=== PATIENT | female | born 1935 | race Caucasian/White ===

== ENCOUNTER 2017-07-31 11:09 | Emergency (ER) | payer MEDICARE, BC ==
--- NOTE | 2017-07-31 11:25 | ER Document Report ---
ED Fall - General Stated Complaint: LEFT ARM INJURY Time Seen by Provider: 07/31/17 11:25 Notes: 82-year-old female. Went to the bathroom this morning. Does have history of balance issues. Followed by neurologist. Lost her balance and fell backwards. Her arm hit the bathtub. Did not lose consciousness. Denies any other major pain. Had a hard time getting out of the bathtub in the position that she was in. had to call EMS. Patient denies any complaints other than pain in the left humerus area as well as being thirsty. TRAVEL OUTSIDE OF THE [place] IN LAST 30 DAYS: No - HPI Occurred: This morning Where: Home Context: Lost balance Associated symptoms: None Location of injury/pain: Upper extremity Severity: Mild Pain Level: 1 Prehospital interventions: No: C-collar, Backboard - Related data Allergies/Adverse Reactions: azithromycin [Azithromycin] Allergy (Unknown, Verified 02/20/13 14:43) tetanus immune globulin [Tetanus Immune Globulin] Allergy (Unknown, Verified 14:43) MSG Allergy (Unknown, Uncoded 02/20/13 14:43) flu vaccine Allergy (Uncoded 02/20/13 14:43) Past Medical History - General Information source: Patient - Social History Smoking Status: Never Smoker Frequency of alcohol use: None Drug Abuse: None Lives with: Spouse/Significant other Family History: Reviewed & Not Pertinent - Past Medical History Cardiac Medical History: Reports: Hx Hypercholesterolemia Pulmonary Medical History: Reports: Hx Asthma Malignancy Medical History: Reports: Hx Skin Cancer GI Medical History: Reports: Hx Gastroesophageal Reflux Disease Musculoskeltal Medical History: Reports Hx Arthritis, Reports Hx Fibromyalgia, Reports Hx Musculoskeletal Deformity, Reports Hx Musculoskeletal Trauma Traumatic Medical History: Reports: Hx Fractures Past Surgical History: Reports: Hx Hysterectomy - Immunizations Immunizations up to date: Yes Hx Diphtheria, Pertussis, Tetanus Vaccination: No Hx Pneumococcal Vaccination: 05/03/10 Review of Systems - Review of Systems Constitutional: No symptoms reported EENT: No symptoms reported Cardiovascular: No symptoms reported Respiratory: No symptoms reported Gastrointestinal: No symptoms reported Genitourinary: No symptoms reported Female Genitourinary: No symptoms reported Musculoskeletal: Other - Left arm pain, left arm contusion Skin: No symptoms reported, Other - Bruising to the left humerus area Hematologic/Lymphatic: No symptoms reported Neurological/Psychological: No symptoms reported. denies: Confusion, Dementia, Sensory change, Weakness, Seizure, Lost consciousness, Headaches, Numbness Physical Exam - Vital signs Vitals: Resp 18 07/31/17 11:33 Interpretation: Normal - General General appearance: Appears well, Alert - HEENT Head: Normocephalic, Atraumatic Eyes: Normal Pupils: PERRL - Respiratory Respiratory status: No respiratory distress Chest status: Nontender Breath sounds: Normal Chest palpation: Normal - Cardiovascular Rhythm: Regular Heart sounds: Normal auscultation Murmur: No - Abdominal Inspection: Normal Distension: No distension Bowel sounds: Normal Tenderness: Nontender Organomegaly: No organomegaly - Back Back: Normal, Nontender - Extremities General upper extremity: Normal color, Normal ROM, Normal temperature, Other - There is a bruise noted on the left mid humerus area. No obvious deformity. Mildly tender to palpation. General lower extremity: Normal inspection, Nontender, Normal color, Normal ROM , Normal temperature, Normal weight bearing. No: Rhoda's sign - Neurological Neuro grossly intact: Yes Cognition: Normal Orientation: AAOx4 Nandini Coma Scale Eye Opening: Spontaneous Nandini Coma Scale Verbal: Oriented Nandini Coma Scale Motor: Obeys Commands Quinn Coma Scale Total: 15 Speech: Normal Motor strength normal: LUE, RUE, LLE, RLE Sensory: Normal - Psychological Associated symptoms: Normal affect, Normal mood - Skin Skin Temperature: Warm Skin Moisture: Dry Skin Color: Normal Course - Re-evaluation Re-evalutation: 07/31/17 13:54 Labs are normal. X-ray unremarkable. Nothing further at this time. Will DC Laboratory 07/31/17 07/31/17 07/31/17 11:55 11:55 11:55 WBC 6.9 RBC 4.22 Hgb 12.3 Hct 37.7 MCV 89 MCH 29.2 MCHC 32.7 RDW 14.6 H Plt Count 239 Seg Neutrophils % 52.5 Lymphocytes % 33.2 Monocytes % 9.1 Eosinophils % 4.5 Basophils % 0.7 Absolute Neutrophils 3.6 Absolute Lymphocytes 2.3 Absolute Monocytes 0.6 Absolute Eosinophils 0.3 Absolute Basophils 0.0 Sodium 140.9 Potassium 4.4 Chloride 103 Carbon Dioxide 32 H Anion Gap 6 BUN 12 Creatinine 0.79 Est GFR ( Amer) > 60 Est GFR (Non-Af Amer) > 60 Glucose 90 Calcium 10.0 Total Bilirubin 0.2 Direct Bilirubin 0.0 Neonat Total Bilirubin Not Reportable Neonat Direct Bilirubin Not Reportable Neonat Indirect Bili Not Reportable AST 24 ALT 30 Alkaline Phosphatase 78 Total Protein 6.1 L Albumin 3.9 TSH 2.62 Free T4 0.85 Urine Color Urine Appearance Urine pH Ur Specific [place] Urine Protein Urine Glucose (UA) Urine Ketones Urine Blood Urine Nitrite Urine Bilirubin Urine Urobilinogen Ur Leukocyte Esterase Urine WBC (Auto) Urine RBC (Auto) Urine Bacteria (Auto) Squamous Epi Cells Auto Urine Mucus (Auto) Urine Ascorbic Acid 07/31/17 12:35 WBC RBC Hgb Hct MCV MCH MCHC RDW Plt Count Seg Neutrophils % Lymphocytes % Monocytes % Eosinophils % Basophils % Absolute Neutrophils Absolute Lymphocytes Absolute Monocytes Absolute Eosinophils Absolute Basophils Sodium Potassium Chloride Carbon Dioxide Anion Gap BUN Creatinine Est GFR ( Amer) Est GFR (Non-Af Amer) Glucose Calcium Total Bilirubin Direct Bilirubin Neonat Total Bilirubin Neonat Direct Bilirubin Neonat Indirect Bili AST ALT Alkaline Phosphatase Total Protein Albumin TSH Free T4 Urine Color YELLOW Urine Appearance CLEAR Urine pH 6.0 Ur Specific [place] 1.017 Urine Protein NEGATIVE Urine Glucose (UA) NEGATIVE Urine Ketones NEGATIVE Urine Blood NEGATIVE Urine Nitrite NEGATIVE Urine Bilirubin NEGATIVE Urine Urobilinogen NEGATIVE Ur Leukocyte Esterase NEGATIVE Urine WBC (Auto) 1 Urine RBC (Auto) 0 Urine Bacteria (Auto) TRACE Squamous Epi Cells Auto 3 Urine Mucus (Auto) OCC Urine Ascorbic Acid NEGATIVE Humerus X-Ray 07/31/17 11:40 IMPRESSION: NEGATIVE STUDY OF THE LEFT HUMERUS. NO RADIOGRAPHIC EVIDENCE OF ACUTE INJURY. - Vital Signs Vital signs: Temp Pulse Resp BP Pulse Ox 18 07/31/17 11:33 - Laboratory Result Diagrams: 07/31/17 11:55 07/31/17 11:55 Laboratory results interpreted by me: 07/31/17 07/31/17 11:55 11:55 RDW 14.6 H Carbon Dioxide 32 H Total Protein 6.1 L Discharge - Discharge Clinical Impression: Contusion of left arm Qualifiers: Encounter type: initial encounter Qualified Code(s): S40.022A - Contusion of left upper arm, initial encounter Condition: Good Disposition: HOME, SELF-CARE Instructions: Contusion ([facility]) Referrals: ANGY VALENTIN PA-C [Primary Care Provider] - Follow up as needed
--- NOTE | 2017-07-31 12:27 | RADIOLOGY REPORT (SQ) ---
EXAM DESCRIPTION: HUMERUS LEFT COMPLETED DATE/TIME: 07/31/2017 11:59 am REASON FOR STUDY: fall, pain COMPARISON: None. NUMBER OF VIEWS: Two views. TECHNIQUE: Two radiographic images were acquired of the left humerus to include elbow and shoulder i n at least one projection. LIMITATIONS: None. FINDINGS: MINERALIZATION: Normal. BONES: No acute fracture or dislocation. No worrisome bone lesions. SOFT TISSUES: No obvious swelling or foreign body. OTHER: No other significant finding. IMPRESSION: NEGATIVE STUDY OF THE LEFT HUMERUS. NO RADIOGRAPHIC EVIDENCE OF ACUTE INJURY. TECHNICAL DOCUMENTATION: JOB ID: [id number] [employer]- All Rights Reserved Reading location - IP/workstation name: [email or web address]
[2017-07-31 12:28] LABS: ABSOLUTE EOSINOPHILS # (AUTO) 0.3 10^3/uL (0.0-0.6); ABSOLUTE LYMPHOCYTES (AUTO) 2.3 10^3/uL (0.5-4.7); ABSOLUTE MONOCYTES (AUTO) 0.6 10^3/uL (0.1-1.4); ABSOLUTE NEUT (AUTO) 3.6 10^3/uL (1.7-8.2); BASOPHILS % (AUTO) 0.7 % (0-2); EOSINOPHILS % (AUTO) 4.5 % (0-6); HEMATOCRIT 37.7 % (36.0-47.0); HEMOGLOBIN 12.3 g/dL (12.0-15.5); LYMPHOCYTES % (AUTO) 33.2 % (13-45); MEAN CORPUSCULAR HEMOGLOBIN 29.2 pg (27.0-33.4); MEAN CORPUSCULAR HGB CONC 32.7 g/dL (32.0-36.0); MEAN CORPUSCULAR VOLUME 89 fl (80-97); MONOCYTES % (AUTO) 9.1 % (3-13); PLATELET COUNT 239 10^3/uL (150-450); RED BLOOD COUNT 4.22 10^6/uL (3.72-5.28); RED CELL DISTRIBUTION WIDTH 14.6 % (11.5-14.0); SEGMENTED NEUTROPHILS % (AUTO) 52.5 % (42-78); TOTAL CELLS COUNTED % (AUTO) 100 %; WHITE BLOOD COUNT 6.9 10^3/uL (4.0-10.5)
[2017-07-31 12:47] LABS: ALANINE AMINOTRANSFERASE 30 U/L (9-52); ALBUMIN 3.9 g/dL (3.5-5.0); ALKALINE PHOSPHATASE 78 U/L (38-126); ANION GAP 6 (5-19); ASPARTATE AMINO TRANSFERASE 24 U/L (14-36); BILIRUBIN,TOTAL 0.2 mg/dL (0.2-1.3); BLOOD UREA NITROGEN 12 mg/dL (7-20); CARBON DIOXIDE 32 mmol/L (22-30); CHLORIDE 103 mmol/L (98-107); GLUCOSE 90 mg/dL (75-110); POTASSIUM 4.4 mmol/L (3.6-5.0); SODIUM 140.9 mmol/L (137-145); TOTAL PROTEIN 6.1 g/dL (6.3-8.2)
[2017-07-31 13:01] LABS: FREE T4 (FREE THYROXINE) 0.85 ng/dL (0.78-2.19)
[2017-07-31 13:15] LABS: THYROID STIMULATING HORMONE 2.62 uIU/mL (0.47-4.68)
[2017-07-31 13:31] LABS: APPEARANCE,URINE CLEAR; BILIRUBIN,URINE NEGATIVE (NEGATIVE); COLOR,URINE YELLOW; GLUCOSE, URINE NEGATIVE (NEGATIVE); KETONES,URINE NEGATIVE (NEGATIVE); LEUKOCYTE ESTERASE,URINE NEGATIVE (NEGATIVE); NITRITE,URINE NEGATIVE (NEGATIVE); PROTEIN,URINE NEGATIVE (NEGATIVE); URINE SPECIFIC GRAVITY 1.017; UROBILINOGEN,URINE NEGATIVE mg/dL (<2.0)
[2017-07-31 14:39] VITALS: BP 119/56
== END 2017-07-31 14:46 | disposition home or self-care (01) ==
LOC: ER 11:09
DX: S40.022A Contusion of left upper arm, initial encounter (principal); W18.2XXA Fall in (into) shower or empty bathtub, initial encounter; Y92.002 Bathroom of unspecified non-institutional (private) residence as the place of occurrence of the external cause; J45.909 Unspecified asthma, uncomplicated; Z88.1 Allergy status to other antibiotic agents; Z88.7 Allergy status to serum and vaccine; Z85.828 Personal history of other malignant neoplasm of skin
CPT/HCPCS: 36415; 80053; 81001; 84439; 84443; 85025; 87086; 99284

== ENCOUNTER → 2017-08-31 | Outpatient (CLI) | payer MEDICARE, BC ==
--- NOTE | 2017-08-31 16:36 | RADIOLOGY REPORT (SQ) ---
EXAM DESCRIPTION: MRI RT UPPER EXTREMITY COMBO; MRI RT UPPER JOINT WITHOUT COMPLETED DATE/TIME: 08/31/2017 4:04 pm REASON FOR STUDY: LOCALIZED SWELLING, MASS AND LUMP (R22.9), PAIN IN RIGHT SHOULDER (M25.511) R22.9 LOCALIZED SWELLING, MASS AND LUMP, UNSPECIFIED COMPARISON: No previous TECHNIQUE: Right upper lateral chest wall and dedicated right shoulder images acquired and stored on PACS. Multiplanar imaging to include fat sensitive sequences such as T1, water sensitive sequences s uch as FST2/STIR, cartilage sensitive sequences such as FSPD/gradient-echo sequences. Patient was also injected 15 mL of IV ProHance gadolinium with postcontrast axial coronal and sagitta l fat-sat T1 images of the upper extremity and shoulder obtained. LIMITATIONS: None. FINDINGS: Right upper lateral chest wall/axilla: Patient indicates a palpable abnormality along the right upper lateral chest wall/axilla. A vitamin E capsule was placed on the patient's skin and savita ging demonstrates minimal focal skin thickening deep to the vitamin-E capsule measuring about 5 mm in thickness. No contrast enhancement. No well-circumscribed mass. Perhaps this represents a small s ebaceous cyst or primary skin lesion. No deep tissue extension. Adjacent subcutaneous fat and right lateral chest wall to include ribs and musculature is unremarkabl e. Right brachials plexus is unremarkable. Normal marrow signal in the scapula, humerus, clavicle, right upper lateral ribs. Right shoulder: BONE MARROW AND CORTEX: No worrisome bone lesions or marrow replacement. No occult fractures. JOINT OR BURSAL EFFUSION: Trace fluid in the subacromial/subdeltoid bursa. GLENO-HUMERAL ARTICULATION: No malalignment. Mild chondromalacia ACROMION AND AC JOINT: Type 2 acromion with moderate acromioclavicular joint bony spurring. Mild na rrowing of the subacromial space ROTATOR CUFF AND INTERVAL: There is high signal in the anterior half of the supraspinatus tendon from tendinopathy and partial thickness tear. No rotator interval tear. No rotator interval thickening to suggest adhesive capsulitis. LABRUM AND BICEPS LABRAL COMPLEX: Intra-articular long head biceps tendinopathy present. There is a diffuse labral tear throughout the anterior and posterior labrum on axial images 7-12. Subcortical cysts are present in the anterior half of the bony glenoid.No thickening of IGHL to suggest adhesive capsulitis. PERIARTICULAR AND ADJACENT SOFT TISSUES: No masses or abnormal nodes. OTHER: No other significant finding. IMPRESSION: Palpable abnormality indicated by the patient correlates with a subtle area of focal ski n thickening. This could indicate a sebaceous cyst or other primary skin lesion. No deep tissue ext ension. Anterior supraspinatus tendinopathy. Diffuse degenerated torn glenoid labrum with subcortical cyst f ormation in the anterior half of the bony glenoid. Intra-articular long head biceps tendinopathy Acromioclavicular joint hypertrophy TECHNICAL DOCUMENTATION: JOB ID: [id number] [employer]- All Rights Reserved Reading location - IP/workstation name: [email or web address]
== END ==
LOC: RAD 13:55
PROVIDERS: ATTEND Orthopaedic Surgery
DX: M25.511 Pain in right shoulder (principal); R22.9 Localized swelling, mass and lump, unspecified
CPT/HCPCS: 73220; 73221; A9576

== ENCOUNTER 2019-06-12 17:01 | Emergency (ER) | payer MEDICARE, BC ==
--- NOTE | 2019-06-12 18:38 | ER Document Report ---
ED Medical Screen (RME) - General Chief Complaint: General Weakness Stated Complaint: GENERAL WEAKNESS Time Seen by Provider: 06/12/19 18:26 Primary Care Provider: JOAN DAWN MD [Primary Care Provider] - Follow up as needed Mode of Arrival: Wheelchair Information source: Patient Notes: Patient presents with spouse with concerns about double vision and the fact that patient has been seeing things that are not there. Patient states that she was at the lacing operator office today and whenever they discovered that patient was having complaint of double vision they recommended her come here for further evaluation. Patient does complain of having a headache that she describes as a pressure in her head. Patient still states that she is also been having hallu cinations in which she sees things that are not there. He states that this is been going on for about 2 to 3 weeks. Patient cannot say what facility she is at and cannot list the day of the week or who the president is at this time. Patient spouse denies any known history of dementia. I have greeted and performed a rapid initial assessment of this patient. A comprehensive ED assessment and evaluation of the patient, analysis of test results and completion of the medical decision making process will be conducted by additional ED providers. TRAVEL OUTSIDE OF THE [place] IN LAST 30 DAYS: No - Related Data Allergies/Adverse Reactions: azithromycin [Azithromycin] Allergy (Unknown, Verified 06/12/19 18:21) tetanus immune globulin [Tetanus Immune Globulin] Allergy (Unknown, Verified 06/12/19 18:21) MSG Allergy (Unknown, Uncoded 06/12/19 18:21) flu vaccine Allergy (Uncoded 06/12/19 18:21) Home Medications: rosuvastatin. cymbalta. premarin. fluticasone. gabapentin. polyethylene glycol. vitamin d. lutein-zeaxanthin. restasis. ketoloric tromethamine. similasan. omeprazole. oxycodone-acetaminophen. estrace. symbicort. fish oil. co q. myrbetriq. proair. albuterol. pnuemovax. doxycycloine Past Medical History - Social History Frequency of alcohol use: None Drug Abuse: None - Past Medical History Cardiac Medical History: Reports: Hx Hypercholesterolemia Pulmonary Medical History: Reports: Hx Asthma Renal/ Medical History: Denies: Hx Peritoneal Dialysis Malignancy Medical History: Reports: Hx Skin Cancer GI Medical History: Reports: Hx Gastroesophageal Reflux Disease Musculoskeltal Medical History: Reports Hx Arthritis, Reports Hx Fibromyalgia, Reports Hx Musculoskeletal Deformity, Reports Hx Musculoskeletal Trauma Traumatic Medical History: Reports: Hx Fractures Past Surgical History: Reports: Hx Hysterectomy, Hx Tonsillectomy - Immunizations Immunizations up to date: Yes Hx Diphtheria, Pertussis, Tetanus Vaccination: No Physical Exam - Vital signs Vitals: Temp Pulse Resp BP Pulse Ox 97.7 F 82 20 128/96 H 99 06/12/19 17:06/12/19 17:06/12/19 17:06/12/19 17:27 06/12/19 17:27 - Neurological Orientation: Disoriented to place, Disoriented to time. No: Disoriented to person Speech: Normal Course - Vital Signs Vital signs: Temp Pulse Resp BP Pulse Ox 97.7 F 82 20 128/96 H 99 06/12/19 17:27 06/12/19 17:27 06/12/19 17:27 06/12/19 17:27 06/12/19 17:27 Doctor's Discharge - Discharge Referrals: JOAN DAWN MD [Primary Care Provider] - Follow up as needed
--- NOTE | 2019-06-12 19:21 | RADIOLOGY REPORT (SQ) ---
EXAM DESCRIPTION: CHEST SINGLE VIEW COMPLETED DATE/TIME: 06/12/2019 7:01 pm REASON FOR STUDY: JIMENEZ, vision changes COMPARISON: 03/18/2016 EXAM PARAMETERS: NUMBER OF VIEWS: One view. TECHNIQUE: Single frontal radiographic view of the chest acquired. RADIATION DOSE: NA LIMITATIONS: None. FINDINGS: LUNGS AND PLEURA: No opacities, masses or pneumothorax. No pleural effusion. MEDIASTINUM AND HILAR STRUCTURES: No masses. Contour normal. HEART AND VASCULAR STRUCTURES: Heart normal in size. Normal vasculature. BONES: No acute findings. HARDWARE: None in the chest. OTHER: No other significant finding. IMPRESSION: NO ACUTE RADIOGRAPHIC FINDING IN THE CHEST. TECHNICAL DOCUMENTATION: JOB ID: [id number] 2010 [employer]- All Rights Reserved Reading location - IP/workstation name: [email or web address]
--- NOTE | 2019-06-12 19:25 | RADIOLOGY REPORT (SQ) ---
EXAM DESCRIPTION: CT HEAD WITHOUT COMPLETED DATE/TIME: 06/12/2019 7:14 pm REASON FOR STUDY: JIMENEZ, vision changes COMPARISON: 11/09/2010 TECHNIQUE: Axial images acquired through the brain without intravenous contrast. Images reviewed wi th bone, brain and subdural windows. Additional sagittal and coronal reconstructions were generated. Images stored on PACS. All CT scanners at this facility use dose modulation, iterative reconstruction, and/or weight based d osing when appropriate to reduce radiation dose to as low as reasonably achievable (ALARA). [facility]: Dose Right [facility]: CareDose [facility]: Dose Right [facility]: Teradose 4D [facility]: [facility] RADIATION DOSE: CT Rad equipment meets quality standard of care and radiation dose reduction techniq ues were employed. CTDIvol: 53.2 mGy. DLP: 991 mGy-cm.mGy. LIMITATIONS: None. FINDINGS: VENTRICLES: Prominent. CEREBRUM: No masses. No hemorrhage. No midline shift. Areas of low density in the white matter mos t likely due to chronic micro-vascular ischemic change. No evidence for acute infarction. CEREBELLUM: No masses. No hemorrhage. No alteration of density. No evidence for acute infarction. EXTRAAXIAL SPACES: Age-related involutional change. No fluid collections. No masses. ORBITS AND GLOBE: No intra- or extraconal masses. Normal contour of globe without masses. CALVARIUM: No fracture. PARANASAL SINUSES: No fluid or mucosal thickening. SOFT TISSUES: No mass or hematoma. OTHER: No other significant finding. IMPRESSION: CHRONIC CHANGES OF ATROPHY AND MICROVASCULAR ISCHEMIA. NO ACUTE PROCESS. EVIDENCE OF ACUTE STROKE: NO. TECHNICAL DOCUMENTATION: JOB ID: [id number] Quality ID # [id number]: Final reports with documentation of one or more dose reduction techniques (e.g., Au tomated exposure control, adjustment of the mA and/or kV according to patient size, use of iterative reconstruction technique) 2010 [employer]- All Rights Reserved Reading location - IP/workstation name: [email or web address]
[2019-06-12 20:13] LABS: ABSOLUTE EOSINOPHILS # (AUTO) 0.3 10^3/uL (0.0-0.6); ABSOLUTE LYMPHOCYTES (AUTO) 1.8 10^3/uL (0.5-4.7); ABSOLUTE MONOCYTES (AUTO) 0.6 10^3/uL (0.1-1.4); ABSOLUTE NEUT (AUTO) 4.1 10^3/uL (1.7-8.2); BASOPHILS % (AUTO) 0.7 % (0-2); EOSINOPHILS % (AUTO) 4.8 % (0-6); HEMATOCRIT 42.2 % (36.0-47.0); HEMOGLOBIN 14.2 g/dL (12.0-15.5); LYMPHOCYTES % (AUTO) 26.8 % (13-45); MEAN CORPUSCULAR HEMOGLOBIN 29.9 pg (27.0-33.4); MEAN CORPUSCULAR HGB CONC 33.5 g/dL (32.0-36.0); MEAN CORPUSCULAR VOLUME 89 fl (80-97); MONOCYTES % (AUTO) 8.8 % (3-13); PLATELET COUNT 258 10^3/uL (150-450); RED BLOOD COUNT 4.74 10^6/uL (3.72-5.28); RED CELL DISTRIBUTION WIDTH 15.1 % (11.5-14.0); SEGMENTED NEUTROPHILS % (AUTO) 58.9 % (42-78); TOTAL CELLS COUNTED % (AUTO) 100 %; WHITE BLOOD COUNT 6.9 10^3/uL (4.0-10.5)
[2019-06-12 20:15] LABS: INTERNATIONAL RATION (INR) 0.97; PARTIAL THROMBOPLASTIN TIME 28.6 SEC (23.5-35.8); PROTHROMBIN TIME 12.9 SEC (11.4-15.4)
[2019-06-12 20:23] LABS: ALBUMIN 4.9 g/dL (3.5-5.0); ALKALINE PHOSPHATASE 87 U/L (38-126); ANION GAP 11 (5-19); ASPARTATE AMINO TRANSFERASE 29 U/L (14-36); BILIRUBIN,DIRECT 0.3 mg/dL (0.0-0.4); BILIRUBIN,TOTAL 0.5 mg/dL (0.2-1.3); BLOOD UREA NITROGEN 16 mg/dL (7-20); CARBON DIOXIDE 30 mmol/L (22-30); CHLORIDE 101 mmol/L (98-107); CREATINE KINASE 36 U/L (30-135); GLUCOSE 103 mg/dL (75-110); POTASSIUM 4.4 mmol/L (3.6-5.0); TOTAL PROTEIN 8.6 g/dL (6.3-8.2)
[2019-06-12 20:35] LABS: CREATINE KINASE MB 0.56 ng/mL (<4.55)
[2019-06-12 20:36] LABS: TROPONIN I < 0.012 ng/mL
--- NOTE | 2019-06-12 21:27 | ER Document Report ---
ED General - General Chief Complaint: General Weakness Stated Complaint: GENERAL WEAKNESS Time Seen by Provider: 06/12/19 18:26 Primary Care Provider: JOAN DAWN MD [NO LOCAL MD] - Follow up as needed KAYLAN MCKEON MD [COMMUNITY BASED STAFF] - Follow up as needed OCTAVIO KOWALSKI MD [NO LOCAL MD] - Follow up as needed Mode of Arrival: Wheelchair Information source: Patient, Relative TRAVEL OUTSIDE OF THE [place] IN LAST 30 DAYS: No - HPI Onset: Other - over the last several weeks Onset/Duration: Gradual Quality of pain: No pain Severity: Moderate Pain Level: Denies Associated symptoms: Other - Dizziness, Confusion Exacerbated by: Walking Relieved by: Remaining still Similar symptoms previously: Yes - Patient has had dizziness and balanace issues but AMS is new Recently seen / treated by doctor: No Notes: 84 year old female with a history of HTN, HLD, Fibromyalgia, Arthritis here for altered mental status and hallucinations. The patient apparently has been seeing things that are not there. The patient has also been more confused then normal per report of her . The patient complains to me that she feels weaker then normal and slightly dazed. The patient's tells me he is concerned about dementia and Parkinsons. Of note, the patient is on pain medications and has been for some time such as Oxycodone and Gabapentin. The patient and her deny recent fevers, chills, sweats, nausea, vomiting, urinary symptoms, cough. - Related Data Allergies/Adverse Reactions: azithromycin [Azithromycin] Allergy (Unknown, Verified 06/12/19 18:21) tetanus immune globulin [Tetanus Immune Globulin] Allergy (Unknown, Verified 06/12/19 18:21) MSG Allergy (Unknown, Uncoded 06/12/19 18:21) flu vaccine Allergy (Uncoded 06/12/19 18:21) Home Medications: rosuvastatin. cymbalta. premarin. fluticasone. gabapentin. polyethylene glycol. vitamin d. lutein-zeaxanthin. restasis. ketoloric tromethamine. similasan. omeprazole. oxycodone-acetaminophen. estrace. symbicort. fish oil. co q. myrbetriq. proair. albuterol. pnuemovax. doxycycloine Past Medical History - General Information source: Patient - Social History Smoking Status: Never Smoker Frequency of alcohol use: None Drug Abuse: None Family History: Reviewed & Not Pertinent Patient has suicidal ideation: No Patient has homicidal ideation: No - Past Medical History Cardiac Medical History: Reports: Hx Hypercholesterolemia, Hx Hypertension Pulmonary Medical History: Reports: Hx Asthma Renal/ Medical History: Denies: Hx Peritoneal Dialysis Malignancy Medical History: Reports: Hx Skin Cancer GI Medical History: Reports: Hx Gastroesophageal Reflux Disease Musculoskeletal Medical History: Reports Hx Arthritis, Reports Hx Fibromyalgia, Reports Hx Musculoskeletal Deformity, Reports Hx Musculoskeletal Trauma Traumatic Medical History: Reports: Hx Fractures Past Surgical History: Reports: Hx Hysterectomy, Hx Tonsillectomy - Immunizations Immunizations up to date: Yes Hx Diphtheria, Pertussis, Tetanus Vaccination: No Hx Pneumococcal Vaccination: 05/03/10 Review of Systems - Review of Systems Constitutional: No symptoms reported EENT: No symptoms reported Cardiovascular: No symptoms reported Respiratory: No symptoms reported Gastrointestinal: No symptoms reported Genitourinary: No symptoms reported Female Genitourinary: No symptoms reported Musculoskeletal: No symptoms reported Skin: No symptoms reported Hematologic/Lymphatic: No symptoms reported Neurological/Psychological: Confusion, Weakness, Other - Dizziness -: Yes All other systems reviewed and negative Physical Exam - Vital signs Vitals: Temp Pulse Resp BP Pulse Ox 97.7 F 82 20 128/96 H 99 06/12/19 17:27 06/12/19 17:27 06/12/19 17:27 06/12/19 17:27 06/12/19 17:27 - Notes Notes: GENERAL: Well-appearing, well-nourished and in no acute distress. HEAD: Atraumatic, normocephalic. EYES: Pupils equal round and reactive to light, extraocular movements intact, sclera anicteric, conjunctiva are normal. ENT: Nares patent, oropharynx clear without exudates. Moist mucous membranes. NECK: Normal range of motion, supple without lymphadenopathy or JVD. LUNGS: Breath sounds clear to auscultation bilaterally and equal. No wheezes rales or rhonchi. HEART: Regular rate and rhythm without murmurs, rubs or gallops. ABDOMEN: Soft, nontender, normoactive bowel sounds. No guarding, no rebound. No masses appreciated. EXTREMITIES: Normal range of motion, no pitting or edema. No clubbing or cyanosis. NEUROLOGICAL: Cranial nerves II through XII grossly intact. Normal speech. PSYCH: Normal mood, normal affect. SKIN: Warm, Dry, normal turgor, no rashes or lesions noted. Course - Re-evaluation Re-evalutation: 06/12/19 23:17 The patient is here for mild altered mental status and confusion which seems to have been present for some time but worsening. The patient is now having some visual hallucinations. The patient's is concerned about Dementia or Parkinson's as a cause of her symptoms. Patient's work up for AMS was unremarkable in the ER including a CBC, CMP, Trop, UA, EKG, CT Head, Chest Xray. Patient told to follow up with her PCP and Neurologist. - Vital Signs Vital signs: Temp Pulse Resp BP Pulse Ox 97.7 F 82 15 134/82 H 98 06/12/19 17:27 06/12/19 17:27 06/12/19 22:02 06/12/19 22:02 06/12/19 22:02 - Laboratory Result Diagrams: 06/12/19 19:54 06/12/19 19:54 Laboratory results interpreted by me: 06/12/19 06/12/19 06/12/19 19:54 19:54 21:41 RDW 15.1 H Calcium 11.0 H Total Protein 8.6 H Urine Ascorbic Acid 40 H - Diagnostic Test Radiology reviewed: Image reviewed, Reports reviewed - EKG Interpretation by Me EKG shows normal: Sinus rhythm, [place], Intervals, QRS Complexes Rate: Normal Rhythm: NSR [place]/QRS: RBBB Discharge - Discharge Clinical Impression: Hallucination Altered mental status Qualifiers: Altered mental status type: unspecified Qualified Code(s): R41.82 - Altered mental status, unspecified Condition: Stable Disposition: HOME, SELF-CARE Instructions: Altered Mental Status ([facility]), Hallucinations ([facility]) Additional Instructions: Follow up with your primary care doctor with your Neurologist. If you would like to follow up with a Different Neurologist, two are listed in your paperwork. Tell your doctors you had blood work, a urine analysis, chest xray, and Head CT Scan where were all unremarkable. Your Head CT Scan showed age related degeneration and changes. Referrals: JOAN DAWN MD [NO LOCAL MD] - Follow up as needed OCTAVIO KOWALSKI MD [NO LOCAL MD] - Follow up as needed KAYLAN MCKEON MD [COMMUNITY BASED STAFF] - Follow up as needed
[2019-06-12 22:11] LABS: APPEARANCE,URINE CLEAR; BILIRUBIN,URINE NEGATIVE (NEGATIVE); COLOR,URINE YELLOW; GLUCOSE, URINE NEGATIVE (NEGATIVE); KETONES,URINE NEGATIVE (NEGATIVE); LEUKOCYTE ESTERASE,URINE NEGATIVE (NEGATIVE); NITRITE,URINE NEGATIVE (NEGATIVE); PROTEIN,URINE NEGATIVE (NEGATIVE); URINE SPECIFIC GRAVITY 1.019; UROBILINOGEN,URINE NEGATIVE mg/dL (<2.0)
[2019-06-12 23:18] VITALS: BP 138/59
--- NOTE | 2019-06-13 07:10 | EKG REPORT ---
SEVERITY:- ABNORMAL ECG - SINUS RHYTHM RIGHT BUNDLE BRANCH BLOCK AND LEFT POST FASCICULAR BLOCK : Confirmed by: Dane Valdovinos MD 13-Jun-2019 07:09:19
== END 2019-06-12 23:48 | disposition home or self-care (01) ==
LOC: ER 17:01
DX: R41.82 Altered mental status, unspecified (principal); R44.1 Visual hallucinations; R53.1 Weakness; R42 Dizziness and giddiness; I10 Essential (primary) hypertension; E78.00 Pure hypercholesterolemia, unspecified; Z88.3 Allergy status to other anti-infective agents; Z85.828 Personal history of other malignant neoplasm of skin
CPT/HCPCS: 36415; 70450; 71045; 80053; 81001; 82550; 82553; 82962; 84484; 85025; 85610; 85730; 93005; 93010; 99285

== ENCOUNTER → 2019-08-22 | Outpatient (CLI) | payer MEDICARE, BC ==
--- NOTE | 2019-08-23 13:01 | NEURO WORKBENCH EEG REPORT ---
EEG Report Patient: Sona Carlson ID: [id number] Referring Doctor: Igor Dahl MD DOS: 08/22/2019 Medications: montelukast sodium, cephalexin, primidone, Cymbalta, Premarin, gabapentin, albuterol, omeprazole, symbicort History This is a 84 year old left handed woman with a history of asthma, hypertension, depression, diastolic dysfunction, dizziness, dermatitis, hallucinations, with abnormal gait. This EEG was requested for abnormal gait/mobility. EEG Interpretation This EEG was recorded in the awake and minimal drowsy states. The awake EEG is characterized by a moderately-organized background with a moderately-developed but reactive posterior dominant rhythm of 7Hz. The remainder of the background consisted of mainly theta activity. There was occasional intermittent polymorphic delta slowing, typically generalized, rarely frontal-temporal on the right>left, during the recording. Mild drowsiness was characterized by mild slowing of the background rhythms. Photic stimulation resulted in no significant changes. There were no epileptiform abnormalities. The EKG showed a regular rhythm. EEG Classification Generalized background slowing, mild Intermittent polymorphic delta slowing, generalized, occasional Intermittent polymorphic delta slowing, frontal-temporal R>L, rare EEG Impression This EEG is abnormal. It is consistent with diffuse cerebral dysfunction. INTERPRETING NEUROLOGIST: Michelle To MD, FRCPC Board Certified in Neurology, with special qualification in Child Neurology, and in Clinical Neurophysiology [facility]
== END ==
LOC: NEURO 12:48
PROVIDERS: ATTEND Pediatrics
DX: R26.89 Other abnormalities of gait and mobility (principal); R44.3 Hallucinations, unspecified; Z79.891 Long term (current) use of opiate analgesic
CPT/HCPCS: 95819

== ENCOUNTER → 2020-01-09 | Outpatient (CLI) | payer MEDICARE, BC ==
--- NOTE | 2020-01-09 10:22 | RADIOLOGY REPORT (SQ) ---
EXAM DESCRIPTION: COOKIE SWALLOW IMAGES COMPLETED DATE/TIME: 01/09/2020 9:33 am REASON FOR STUDY: R13.10 DYSPHAGIA, UNSPECIFIED R13.10 DYSPHAGIA, UNSPECIFIED COMPARISON: None. TECHNIQUE: Videofluoroscopic swallowing examination was performed in conjunction with speech patholo gy. Videofluoroscopic imaging was obtained and reviewed and these are the findings: RADIATION DOSE: Fluoro time 1.3 minutes 1 images saved to PACS. LIMITATIONS: None FINDINGS: The patient was brought into the fluoro room and placed upright on a modified barium swall ow chair. The patient was then given multiple consistencies mixed with barium to swallow under live fluoroscopic video guidance. According to the Speech Pathologist there was no penetration or aspirat ion. Please refer to the speech pathology report for further details. IMPRESSION: NO EVIDENCE OF PENETRATION OR ASPIRATION. PLEASE SEE SPEECH PATHOLOGIST REPORT FOR OTHER FINDINGS AND RECOMMENDATIONS. COMMENT: None Quality ID [id number]: Final reports for procedures using fluoroscopy that document radiation exposure tavo tasneem, or exposure time and number of fluorographic images (if radiation exposure indices are not avail able) TECHNICAL DOCUMENTATION: JOB ID: [id number] 2010 [employer]- All Rights Reserved Reading location - IP/workstation name: [email or web address]
--- NOTE | 2020-01-09 10:25 | ST Modified Barium Swallow ---
Recommendation - Recommendations Recommendations: The pt presents with a swallow that is WNL given her age. No airway compromise observed. However, the pt did speak during her swallow attempts when bolus was in her vallecular space. No talking duing active swallowing, small bites and sips, alteranting solids and liquids, remaining upright 30 min post meal, straws okay Medical Diagnoses - Medical Diagnoses Medical Diagnosis Description & ICD-10 Code(s): Dysphagia Other Medical Diagnoses/Co-Morbidities: arthritis, skin cancer, recent weight gain, reflux, vertigo, fibromyalgia, osteoporosis, Hyperlipidemia, spinal stenosis, HTN, anemia, hx of polymyalgia rheumatica, depressionPast surgeries: Partial hysterectomy, Tonsillectomy ST Modified Barium Swallow - General Date: 01/09/20 Referring Physician: Daysi Bhardwaj Risks/Precautions: Aspiration Date of Onset: 11/01/19 Reason for Referral: choking event resulting in vomiting, hamburger - History -: Medical, Family/Social, Occupational, PT Medications: cymbalta, coQ-10, B-12, allergra, spectravite, multi vitamin, D3, furosemide, klor-com, aspirin, premarin, lutein, meclizine, restasis, Oxycodone, meloxicam, lovastatin, omeprazole, gabapentin, premarin, similsan dry eye relief, keterolac tromethamine opthalmic solution, polyethylene glycol, fexofenadine, fluticasone proprionate Allergies: pollen, Azithromycin, Tetanus immune globulin, MSG, Flu vaccine, Erythromycin derivatives, Hydroxychloroquine sulfate, Lipitor, Plaquenil - Functional Status Prior Functional Status: INDEPENDENT: ADL - Subjective Patient/caregiver goal(s): safe swallow, r/o aspiration Current Nutritional Means: PO Current PO diet: Regular Current symptoms: Coughing Pain: 0/5 - Objective Assessment: Upright - Food Trials Used Food trials used: Thin liquids, [place] thick liquids, Pureed, Regular The patient: Was Able to Self Feed - Assessment Oral Stage: The pt's oral stage of swallow was insignificant. No premature spillage noted, no residue remaining in oral cavity post swallow. - Pharyngeal Stage Pharyngeal Stage Comments: The pt's pharyngeal phase of swallow was WNL given her age. The pt had no airway compromise across textures. She was noted to have adequate hyolaryngeal elevation and excursion, closure of laryngeal vestibule. No residue post swallow. - Esophageal Stage Esophageal Stage: Esophageal phase appeared WNL given no residue or retrograde movement of bolus noted. - Fall Risk Assessment Medications/Conditions that increase fall risks include: Antidepressants, sedati ves, anti-arrhythmic, diuretic, benzodiazipenes, neuroleptics. BP regulation problems, cardiac problems, balance or gait deficits, neurological problems. Is patient considered at risk for falls: yes - Pt arrived in hospital wheelchair, assisted by ST to barium chair without diffiuclty. Fall Risk Actions Taken: No action needed - Assisted pt, verbally advised caution - Behavioral Observations During evaluation process patient: was pleasant, was cooperative, provided medical history - Pt was able to answer questions, but stated that she has diffciulty remembering things. Most PMH pulled from EMR. - Treatment / Educational Needs: Treatment/Education Needs: Treatment consisted of patient education on the role of the Speech Pathologist. Patient's plan of care and golas were communicated as well as scheduling and attendance policies. Recommendations for initial home program were shared. Patient demonstrated understanding and verbalized agreement. Initial home program recommendations: n/a - Impression/Summary Laryngeal Penetration: No Patient presents with: Normal swallow at eval Risk of Aspiration: Moderate Evaluation and Findings: While the pt's swallow was WNL at eval she was noted to talk while bolus sat in her vallecular space and required cuing to stop talking and to finish her swallow. This could lead to microaspriations or choking episodes during mealtimes. This was discussed at length. - Recommendations Solid diet recommendations: Regular Liquid Diet Modification: Thin Strict aspiration precautions: Yes Pt/Family education and followup with MD: Yes Dysphagia therapy with BACK CLOSER: no Reflux Precautions: Taught to Patient Recommended techniques: Fully Upright During Meal, Small Bites and Sips, Alternate Bites/Sips Supervision: Independent Information, Precautions and Recommendations: Patient (Written), Patient (Verbal) - Time Total Time: 30 - Plan of Care Patient to follow-up with referring physician: Yes Strategies to optimize patient understanding include:: ongoing assessment of educational needs, implementation of educational strategies, and re-education. - - -: Thank you for the opportunity to work with this patient and his/her family. Should you have any questions about this patient's plan or progress, I can be reached at [phone].
== END ==
LOC: WI 08:14
PROVIDERS: ATTEND Registered Nurse
DX: R13.10 Dysphagia, unspecified (principal)
CPT/HCPCS: 74230